=== PATIENT | female | born 1965 | race Caucasian/White ===

== ENCOUNTER 2019-08-12 19:19 | Emergency (ER) | payer OTHER ==
[~2019-08-12] VITALS: Ht 157.5 cm; Wt 50.8 kg
[2019-08-12 19:28] VITALS: Ht 157.5 cm; Wt 50.8 kg
[2019-08-12 20:41] LABS: BASOPHIL % 0.5 % (0-2); PLATELET COUNT 224 x10^3mcL (130-400); RED CELL DISTRIBUTION WIDTH 13.3 % (11.5-14.5)
[2019-08-12 20:43] LABS: microscopic required? YES; urine erythrocyte NEGATIVE (NEGATIVE)
[2019-08-12 20:51] LABS: CALCIUM 8.9 mg/dL (8.5-10.1); CARBON DIOXIDE 28.8 mmol/L (21-32); CHLORIDE SERUM 104 mmol/L (98-107); CREATININE SERUM 0.8 mg/dL (0.6-1.0); GFR1 > 60 mL/min; GLUCOSE SERUM 102 mg/dL (74-106); POTASSIUM SERUM 3.8 mmol/L (3.5-5.1); SODIUM SERUM 139 mmol/L (136-145)
[2019-08-12 20:54] LABS: ALBUMIN 4.2 g/dL (3.4-5.0); ALKALINE PHOSPHATASE 88 U/L (46-116); ALT/SGPT 11 U/L (14-59); AST/SGOT 18 U/L (15-37); BILIRUBIN TOTAL 0.23 mg/dL (0.20-1.00); LIPASE 473 IU/L (73-393); TOTAL PROTEIN, SERUM 7.8 g/dL (6.4-8.2)
[2019-08-12 22:00] VITALS: BP 137/91
== END 2019-08-12 22:00 | disposition home or self-care (01) ==
LOC: ED 19:19
PROVIDERS: Emergency Medicine
DX: K85.90 Acute pancreatitis without necrosis or infection, unspecified (principal); E87.5 Hyperkalemia
CPT/HCPCS: J1885; J2270; J2405; J7030